=== PATIENT | female | born 1975 | race Native Hawaiian/Other Pacific Islander ===

== ENCOUNTER 2020-09-25 12:56 | Inpatient (IN) | payer OTHER, SELFPAY ==
[2020-09-25 17:28] VITALS: BMI 51.5
[2020-09-27 11:41] VITALS: BP 131/84; TEMP 98.2
== END 2020-09-27 14:17 | disposition short-term general hospital (02) | DRG 552 ==
LOC: ERS 12:56 → SURG A 15:18
PROVIDERS: ADMIT Surgery; ATTEND Surgery
DX: S32.10XA Unspecified fracture of sacrum, initial encounter for closed fracture (principal); S32.592A Other specified fracture of left pubis, initial encounter for closed fracture; S32.059A Unspecified fracture of fifth lumbar vertebra, initial encounter for closed fracture; Z20.822 Contact with and (suspected) exposure to COVID-19; Z23 Encounter for immunization; S42.022A Displaced fracture of shaft of left clavicle, initial encounter for closed fracture; E11.65 Type 2 diabetes mellitus with hyperglycemia; F17.210 Nicotine dependence, cigarettes, uncomplicated; D50.0 Iron deficiency anemia secondary to blood loss (chronic); V28.4XXA Motorcycle driver injured in noncollision transport accident in traffic accident, initial encounter; Y92.410 Unspecified street and highway as the place of occurrence of the external cause; Z79.4 Long term (current) use of insulin
CPT/HCPCS: 36415; 36416; 51702; 70450; 71045; 71260; 72125; 72170; 74177; 80048; 80053; 81003; 81015; 82010; 83036; 83735; 84100; 85025; 90471; 90715; 96374; 96375; 96376; G0390; J1815; J2270; J2405; J3010; J3475; J3490; Q9967; U0002; U0005